=== PATIENT | male | born 1960 | race Caucasian/White ===

== ENCOUNTER 2022-09-15 09:48 | Emergency (ER) | payer OTHER ==
[~2022-09-15] VITALS: Ht 167.6 cm; Wt 83.5 kg
--- NOTE | 2022-09-15 10:04 | NUR ---
BIB TRIPPED/ FELL ON UNEVEN PAVEMENT C/O RIGHT SHOULDER PAIN. 10/10 PAIN ON PAIN SCALE. PT STATED HE HAS NO PREVIOUS INJURY OR DISLOCATION OF THE RIGHT SHOULDER/. ATTACHED TO MONITOR. AWAITING MD ORDERS.
--- NOTE | 2022-09-15 10:12 | NUR ---
graduate intern at bedside for xray
[2022-09-15] MEDS ORDERED: FENTANYL PF 100MCG/2ML AMPUL ONE (10:15)
--- NOTE | 2022-09-15 10:20 | NUR ---
DAVID ESTABLISHED L AC 20G.
[2022-09-15] MEDS ORDERED: FENTANYL PF 100MCG/2ML AMPUL IV ONE ×2 (10:30→11:00)
[2022-09-15] MEDS ORDERED: PROPOFOL 20 ML IV ONE (10:56)
[2022-09-15] MEDS ORDERED: PROPOFOL 200 MG/20 ML VIAL IV ONE (11:00)
--- NOTE | 2022-09-15 11:02 | NUR ---
CONSENT FORMS SIGNED BY AT BEDSIDE; PT UNABLE TO PHYSICALLY SIGN BUT PROVIDED VERBAL ACKNOWLEDGEMENT.
--- NOTE | 2022-09-15 11:08 | NUR ---
40MG PROPOFOL IV GIVEN
--- NOTE | 2022-09-15 11:08 | NUR ---
BP-203/89, HR-77, R-18, [id number]% AT 2L VIA NC
--- NOTE | 2022-09-15 11:09 | NUR ---
CLOSED REDUCTION DONE ON R SHOULDER BY DR. MARTIN AT BEDSIDE. RADIOLOGY CALLED FOR XRAY OF R SHOULDER.
--- NOTE | 2022-09-15 11:09 | NUR ---
20MG PROPOFOL IV GIVEN AND FLUSHED W/ NS.
[2022-09-15] MEDS ORDERED: HYDR-4303 PO (11:27)
--- NOTE | 2022-09-15 11:45 | NUR ---
IV removed. Catheter intact and site benign. Pressure and 4x4 applied to site. No bleeding noted.Patient discharged to home in stable condition. Written and verbal after care instructions given. Patient verbalizes understanding of instruction.
[2022-09-15 12:25] VITALS: BP 203/89
== END 2022-09-15 12:25 | disposition home or self-care (01) ==
LOC: ER 09:50
DX: S43.084A Other dislocation of right shoulder joint, initial encounter (principal); E11.9 Type 2 diabetes mellitus without complications; W18.30XA Fall on same level, unspecified, initial encounter; Y93.89 Activity, other specified; Y92.89 Other specified places as the place of occurrence of the external cause; Y99.8 Other external cause status
CPT/HCPCS: 99285; 23650; 99152; 73030 ×2; J2704; J3010; J7030; G0500